=== PATIENT | male | born 1995 | race Caucasian/White ===

== ENCOUNTER 2019-01-26 14:27 | Emergency (ER) | payer SELFPAY ==
--- NOTE | 2019-01-26 16:37 | ER Document Report ---
ED General - General Chief Complaint: Sunburn Stated Complaint: SUNBURN,CONGESTION Time Seen by Provider: 01/26/19 15:35 Mode of Arrival: Ambulatory Information source: Patient TRAVEL OUTSIDE OF THE [place] IN LAST 30 DAYS: No - HPI Patient complains to provider of: Significant sunburn Onset: Yesterday Onset/Duration: Sudden Quality of pain: Burning Severity: Moderate Pain Level: 2 Associated symptoms: None Exacerbated by: Denies Relieved by: Denies Similar symptoms previously: No Recently seen / treated by doctor: No Notes: 23-year-old male coming in today with significant sunburn on his upper torso. He was a little bit nauseous and a little bit congested yesterday has a headache today. Otherwise feels fine. States that he does not really think it is anything that is a big deal and that he is being told to come in by his significant other who wanted him to get checked out. - Related Data Allergies/Adverse Reactions: No Known Allergies Allergy (Verified 01/26/19 14:31) Past Medical History - General Information source: Patient - Social History Smoking Status: Never Smoker Frequency of alcohol use: None Drug Abuse: None Family History: Reviewed & Not Pertinent Patient has suicidal ideation: No Patient has homicidal ideation: No Renal/ Medical History: Denies: Hx Peritoneal Dialysis Review of Systems - Review of Systems Notes: Constitutional: No fevers. No chills. EENT: No eye redness. No eye pain. No ear pain. No sore throat. Cardiovascular: No chest pain. No palpitations. Respiratory: No cough. No shortness of breath. No respiratory distress. Gastrointestinal: No abdominal pain. No nausea, vomiting, or diarrhea. Genitourinary: Atraumatic. No lesions. No pain. No discharge. Musculoskeletal: Atraumatic. No swelling. No deformities. Skin: Positive for redness Lymphatic: No swollen lymph nodes. Neurologic: No headache. No syncope. Psychiatric: No suicidal or homicidal ideation. Physical Exam - Vital signs Vitals: Temp Pulse Resp BP Pulse Ox 98.3 F 103 H 18 143/85 H 97 01/26/19 14:32 01/26/19 14:32 01/26/19 14:32 01/26/19 14:32 01/26/19 14:32 - Notes Notes: General: Well-developed, well-nourished. In no acute distress. Non-toxic appearing. Cardiac: Well-perfused. Regular rate and rhythm. No murmurs, rubs, or gallops. Pulmonary: No respiratory distress. No cyanosis. Bilateral lung fiels are clear to auscultation. Abdominal: Non-distended. Non-rigid. Bowels sounds are present in all four quadrants. No guarding or rebound. HEENT: Head is atraumatic. Conjunctivae not reddened. No tearing. PERRL. EOMI. Orbits atraumatic. No periorbital swelling or erythema. Oropharynx is without erythema, swelling, or exudates. Neck: Supple. No adenopathy. No meningismus. Dermatologic: Significant first-degree sunburn to the chest primarily in a little bit to the back and arms. No blisters. Chest: Atraumatic. No chest wall tenderness to palpation. Musculoskeletal: Moves all extremities well. No range of motion deficits. no muscular or joint tenderness. No paraspinal muscle tenderness. no midline spinal tenderness or step-off. Genitourinary: Examination deferred Neurologic: No gross neurologic deficits. Psychiatric: Normal mood. Course - Re-evaluation Re-evalutation: 01/26/19 16:34 Patient is not having any vomiting today. I encouraged him to significantly increase his hydration as it sounds like he only had a couple bottles of water yesterday when he was out in the sun. I have him treat his headache symptomatically with Tylenol or Motrin. There is no signs of any second-degree burning or blister formation. Will discharge - Vital Signs Vital signs: Temp Pulse Resp BP Pulse Ox 98.3 F 103 H 18 143/85 H 97 01/26/19 14:32 01/26/19 14:32 01/26/19 14:32 01/26/19 14:32 01/26/19 14:32 Discharge - Discharge Clinical Impression: Sunburn Headache Qualifiers: Headache type: unspecified Headache chronicity pattern: acute headache Intractability: not intractable Qualified Code(s): R51 - Headache Condition: Good Disposition: HOME, SELF-CARE Instructions: Sunburn ([facility]), Headache ([facility]) Additional Instructions: Be sure to hydrate yourself well today. You may be slightly dehydrated from yesterday's activities in the sun. Recommend that you drink at least 3 of your 32 ounce bottles of water to try to compensate. He will know that your hydration status is caught up when you are able to pee clear urine. Referrals: [facility] [Provider Group] - Follow up as needed
[2019-01-26 16:40] VITALS: BP 145/77
== END 2019-01-26 16:42 | disposition home or self-care (01) ==
LOC: ER 14:27
DX: L55.9 Sunburn, unspecified (principal); R51 Headache; R11.0 Nausea
CPT/HCPCS: 99282